=== PATIENT | female | born 1960 | race Caucasian/White ===

== ENCOUNTER 2019-03-05 09:54 | Observation (INO) | payer BC ==
[2019-03-05] MEDS: Zofran 4 MG/2 ML VIAL IV PRN (10:37)
[2019-03-05] MEDS: MORPHINE SULFATE 4 MG INJ IV PRN ×2 (10:37→15:05)
[2019-03-05 10:53] LABS: Hematocrit 40.8 % (35-47); Hemoglobin 13.6 gm/dl (12.0-16.0); Mean Cell Volume 85.2 fl (78-100); Mean Corpuscular Hemoglobin 28.4 pg (26-32); Mean Corpuscular Hgb Concent. 33.3 g/dl (32-36); Mean Platelet Volume 10.3 fl (6-9.5); Platelet Count 184 K/mm3 (150-450); Red Blood Count 4.79 M/mm3 (4.1-5.4); Red Cell Distribution Width 14.1 % (11.5-14.0); White Blood Count 7.7 K/mm3 (4.0-10.5)
[2019-03-05] MEDS ORDERED: HOLD METFORMIN PRODUCTS FOR 48 HOURS MC SCH (11:00)
[2019-03-05 11:01] LABS: ALKALINE PHOSPHATASE 136 U/L (38-126); ANION GAP 13.9 MEQ/L (5-15); BLOOD UREA NITROGEN 11 mg/dL (7-17); CHLORIDE 103 mmol/L (98-107); Calcium 9.6 mg/dL (8.4-10.2); Carbon Dioxide 31 mmol/L (22-30); Creatinine 1 0.48 mg/dL (0.52-1.04); Glucose 105 mg/dL (74-106); Potassium 4.6 mmol/L (3.5-5.1); SGOT/AST 27 U/L (14-36); SGPT/ALT 29 U/L (0-35); SODIUM 143 mmol/L (137-145); Total Protein 7.4 g/dL (6.3-8.2)
[2019-03-05] MEDS: FLAGYL IV SCH ×2 (11:01→11:55)
[2019-03-05] MEDS: Sodium Chloride 0.9% 1000 ML 1,000 ML IV SCH ×2 (11:01→22:04)
[2019-03-05] MEDS: Levofloxacin 500MG/100ML D5W 500 MG/100 ML BAG IV SCH (11:02)
[2019-03-05 11:49] LABS: Appearance CLEAR (CLEAR); Bilirubin NEGATIVE (NEGATIVE); Blood NEGATIVE Ery/ul (0-5); Glucose >=500 mg/dL (NEGATIVE); Ketones NEGATIVE (NEGATIVE); Leukocyte Esterase NEGATIVE (NEGATIVE); Mucus SLIGHT /HPF (NEGATIVE); Nitrite NEGATIVE (NEGATIVE); Protein,Urine Dip NEGATIVE (Negative); Specific Gravity 1.022 (1.005-1.025); Urobilinogen NEGATIVE mg/dL (0-1); WBC 0-2 /HPF (0-5)
--- NOTE | 2019-03-05 11:50 | XRAY ---
Indication: Left abdomen pain. Diarrhea and nausea. Increased bowel movements. 20 pound weight loss. Multiple contiguous axial images obtained through the abdomen and pelvis prior to and following 80 cc Isovue 370 contrast as ordered. Comparison: February 20, 2019. Lung bases demonstrate stable right middle lobe calcific granuloma and minimal left base fibrosis/scarring. Heart is not enlarged. Noncontrasted images again negative for pathologic visceral calcification/calculi. Noncontrasted stomach and bowel loops remain nonobstructed with stable small descending duodenum diverticulum. Stable cholecystectomy, appendectomy, and hysterectomy. No free fluid/air. Postcontrast images again demonstrates normal visceral enhancement and renal excretion. Stable 20 cm hepatomegaly and 14 cm splenomegaly. Remaining liver, pancreas, spleen, adrenal glands, kidneys, ureters, and bladder appear unremarkable. Stable minimal aortic calcifications. Again no AAA or pathologic retroperitoneal lymphadenopathy. Impression: Stable CT abdomen/pelvis with and without contrast exam again demonstrating hepatosplenomegaly and duodenal diverticulum. No new/acute findings. CT DI 23.68
[2019-03-05] MEDS ORDERED: MEDICATION INTERVENTION PO SCH (14:30)
[2019-03-05] MEDS: ENOXAPARIN SODIUM SQ SCH (16:15)
[2019-03-05] MEDS: FLAGYL 500 MG IVPB 500 MG/100 ML BAG IV SCH ×2 (17:16→23:34)
[2019-03-05] MEDS: Cymbalta 30 MG Capsule PO SCH (20:06)
[2019-03-05] MEDS: MORPHINE SULFATE 10 MG/ML IV PRN (20:07)
[2019-03-06] MEDS: Zofran 4 MG/2 ML VIAL IV PRN ×2 (02:43→08:34)
[2019-03-06] MEDS: FLAGYL 500 MG IVPB 500 MG/100 ML BAG IV SCH ×3 (05:55→18:20)
[2019-03-06] MEDS: ZOCOR 20MG PO SCH (08:44)
[2019-03-06] MEDS: ENOXAPARIN SODIUM SQ SCH (08:44)
[2019-03-06] MEDS: Levofloxacin 500MG/100ML D5W 500 MG/100 ML BAG IV SCH (08:44)
[2019-03-06] MEDS: Januvia 50 MG PO SCH (08:44)
[2019-03-06] MEDS: Cymbalta 30 MG Capsule PO SCH ×2 (08:44→21:01)
[2019-03-06] MEDS: Sodium Chloride 0.9% 1000 ML 1,000 ML IV SCH ×2 (08:45→21:02)
[2019-03-06] MEDS: MORPHINE SULFATE 10 MG/ML IV PRN (08:53)
[2019-03-06] MEDS: PATIENT OWN MEDICATION PO SCH (08:56)
[2019-03-06] MEDS ORDERED: TYLENOL EXTRA STRENGTH 500 MG PO PRN (09:10)
--- NOTE | 2019-03-06 09:10 | PCM.NOTE ---
Date and Time: 03/06/19903 Subjective Assessment: 58 yr old female seen and examined this am. Patient reports her pain is 5/9 this am. She reports that she has not had morphine today. She still has decreased appetite and no desire to eat. She has only been able to eat a cracker and drink some juice. She has not had a BM this am. The abdominal pain is mainly left quadrant all the time but then will radiate to periumbilical area. No dysuria or hematuria. Patient reports constant nausea and has had zofran twice. No other reported concerns today. - Review of Systems Constitutional: No Fever Eyes: No Symptoms Abdominal/Gastrointestinal: Abdominal Pain (LLQ and umbilical. ), Nausea, Appetite Changes, No Vomiting, No Diarrhea, No Constipation Genitourinary Symptoms: No Dysuria, No Frequency, No Hematuria, No Flank Pain Musculoskeletal: No Symptoms Skin: No Symptoms Neurological: Headache Psychological: Anxiety, Emotional Lability Objective Exam General Appearance: mild distress Neurologic Exam: oriented x 3, cooperative, normal mood/affect Skin Exam: normal color, warm, dry Eye Exam: eyes nml inspection, No scleral icterus Ears, Nose, Throat Exam: moist mucous membranes Neck Exam: normal inspection Respiratory Exam: normal breath sounds, lungs clear, No chest tenderness, No respiratory distress, No crackles/rales, No rhonchi, No wheezing Cardiovascular Exam: regular rate/rhythm, normal heart sounds, No murmur Gastrointestinal/Abdomen Exam: normal bowel sounds, tenderness (LLQ and umbilical), No distention, No mass, No guarding, No ecchymosis, No pulsatile mass, No rebound, No hernia Extremity Exam: normal inspection OBJECTIVE DATA Vital Signs: Vital Signs - 24 hr Temp Pulse Resp BP Pulse Ox 03/06/19 08:00 98.0 F 80 16 165/72 95 03/06/19 04:00 98.1 F 86 18 116/55 96 03/06/19 00:00 97.7 F 90 18 123/59 92 L 03/05/19 20:00 97.6 F 88 17 117/55 95 03/05/19 16:00 97.9 F 82 16 132/61 93 L 03/05/19 12:00 97.7 F 87 18 136/63 97 03/05/19 10:08 97.7 F 87 18 136/63 97 Pain Assessment - Last Documented Pain Intensity 5 Pain Scale Used 0-10 Pain Scale Intake and Output: Intake & Output 03/03/19 03/04/19 03/05/19 03/06/19 11:59 11:59 11:59 11:59 Intake Total 2420 Output Total 400 650 Balance -400 1770 Weight 95.5 kg Lab Results: Accuchecks Date 03/06/19 Date 03/05/19 Time 07:34 Time 16:45 Accucheck Value: 98 Accucheck Value: 103 Accucheck Value: 86 Lab Results-Last 24 Hours 03/05/19 03/05/19 03/05/19 Range/Units 10:45 10:45 Unknown WBC 7.7 (4.0-10.5) K/mm3 RBC 4.79 (4.1-5.4) M/mm3 Hgb 13.6 (12.0-16.0) gm/dl Hct 40.8 (35-47) % MCV 85.2 (78-100) fl MCH 28.4 (26-32) pg MCHC 33.3 (32-36) g/dl RDW 14.1 H (11.5-14.0) % Plt Count 184 (150-450) K/mm3 MPV 10.3 H (6-9.5) fl Sodium 143 (137-145) mmol/L Potassium 4.6 (3.5-5.1) mmol/L Chloride 103 (98-107) mmol/L Carbon Dioxide 31 H (22-30) mmol/L Anion Gap 13.9 (5-15) MEQ/L BUN 11 (7-17) mg/dL Creatinine 0.48 L (0.52-1.04) mg/dL Estimated GFR > 60.0 ML/MIN Glucose 105 (74-106) mg/dL Calcium 9.6 (8.4-10.2) mg/dL Total Bilirubin 0.30 (0.2-1.3) mg/dL AST 27 (14-36) U/L ALT 29 (0-35) U/L Alkaline Phosphatase 136 H (38-126) U/L Serum Total Protein 7.4 (6.3-8.2) g/dL Albumin 4.0 (3.5-5.0) g/dL Urine Color YELLOW (YELLOW) Urine Appearance CLEAR (CLEAR) Urine pH 7.0 (5-6) Ur Specific [place] 1.022 (1.005-1.025) Urine Protein NEGATIVE (Negative) Urine Ketones NEGATIVE (NEGATIVE) Urine Blood NEGATIVE (0-5) Umer/ul Urine Nitrite NEGATIVE (NEGATIVE) Urine Bilirubin NEGATIVE (NEGATIVE) Urine Urobilinogen NEGATIVE (0-1) mg/dL Ur Leukocyte Esterase NEGATIVE (NEGATIVE) Urine WBC (Auto) 0-2 (0-5) /HPF Urine RBC (Auto) NONE (0-2) /HPF U Epithel Cells (Auto) NONE (FEW) /HPF Urine Bacteria (Auto) NONE (NEGATIVE) /HPF Urine Mucus (Auto) SLIGHT (NEGATIVE) /HPF Urine Culture Reflexed ORDERED SEPARATELY (NO) Urine Glucose >=500 (NEGATIVE) mg/dL Radiology Exams: Radiology Procedures Category Date Time Status ABDOMEN AND PELVIS W&WO CONTRA [CT] Stat Exams 03/05/19 10:10 Completed Assessment/Plan (1) Abdominal pain Current Visit: Yes Status: Acute Assessment & Plan: Unclear etiology. Patient has had [address] scans WBC neg afebrile. Will treat for a diverticulitis with IV antibiotics and morphine for pain. Zofran for nausea. Patient will be on regular diet as tolerated. Patient is scheduled for colonoscopy on saturday. Will continue managing abdominal pain Code(s): R10.9 - UNSPECIFIED ABDOMINAL PAIN (2) Unintentional weight loss Current Visit: Yes Status: Acute Assessment & Plan: Patient is unsure if this is accurate because she believed she had gained weight. Our records indicate 22 pound weight loss. Patient has had decreased appetite. Will continue to monitor. Code(s): R63.4 - ABNORMAL WEIGHT LOSS (3) Decreased appetite Current Visit: Yes Status: Acute Assessment & Plan: Patient is on zofran for nausea and on regular diet as tolerated. Will continue to monitor. Patient may need supplemental nutrition if this continues to persist. Code(s): R63.0 - ANOREXIA (4) Headache Current Visit: Yes Status: Acute Assessment & Plan: Patient is reporting headache. Will start on tylenol Code(s): R51 - HEADACHE
[2019-03-06] MEDS: Protonix 20MG Tablet PO SCH (09:27)
[2019-03-06] MEDS ORDERED: NON-FORMULARY ITEM (Rosuvastatin Calcium [Crestor] 10 MG) PO SCH (10:00)
[2019-03-06] MEDS ORDERED: NON-FORMULARY ITEM (Empagliflozin [Jardiance] 25 MG) PO SCH (10:00)
[2019-03-06] MEDS ORDERED: NON-FORMULARY ITEM (Linagliptin [Tradjenta] 5 MG) PO SCH (10:00)
[2019-03-07] MEDS: FLAGYL 500 MG IVPB 500 MG/100 ML BAG IV SCH ×2 (00:10→06:25)
[2019-03-07] MEDS: Zofran 4 MG/2 ML VIAL IV PRN (00:40)
[2019-03-07 04:34] VITALS: PULSE 87
[2019-03-07 07:34] VITALS: BP 146/67; O2SAT 96
[2019-03-07] MEDS: Cymbalta 30 MG Capsule PO SCH (09:38)
[2019-03-07] MEDS: Januvia 50 MG PO SCH (09:38)
[2019-03-07] MEDS: PATIENT OWN MEDICATION PO SCH (09:39)
[2019-03-07] MEDS: Protonix 20MG Tablet PO SCH (09:40)
[2019-03-07] MEDS: ZOCOR 20MG PO SCH (09:43)
--- NOTE | 2019-03-07 10:08 | PCM.DS ---
Discharge Summary Date of Admission: 03/05/19 09:57 Date of Discharge: 03/07/19 Admitting Physician: CALLUM MARCUS MD Consults: Consults on Case 03/05/19 16:33 Consult Physician ROUTINE Primary Care Provider: CALLUM MARCUS MD Allergies Allergies No Known Drug Allergies Allergy (Unverified 03/05/19 10:07) Hospital Summary - Hospital Course Hospital Course: 58 yr old female with a an approximate two weeks history or left - Vitals & Intake/Output Vital Signs: Vital Signs Temperature 98 F 03/07/19 07:33 Pulse Rate 87 03/07/19 07:33 Respiratory Rate 20 03/07/19 07:33 Blood Pressure 146/67 03/07/19 07:33 O2 Sat by Pulse Oximetry 96 03/07/19 07:33 Intake & Output: Intake & Output 03/04/19 03/05/19 03/06/19 03/07/19 11:59 11:59 11:59 11:59 Intake Total 2540 3661 Output Total 922 370 5393 Balance -400 1890 1361 Weight 95.5 kg - Lab Result Diagrams: 03/05/19 10:45 03/05/19 10:45 Lab Results-Last 24 Hrs: Accuchecks Date 03/06/19 Date 03/06/19 Date 03/06/19 Time 21:30 Time 17:30 Time 12:36 Accucheck Value: 115 Accucheck Value: 92 Accucheck Value: 105 Micro Results-Entire Visit: Microbiology 03/05/19 Unknown Urine Culture - Preliminary Urine, Void No growth. Accuchecks Date 03/06/19 Date 03/06/19 Date 03/06/19 Time 21:30 Time 17:30 Time 12:36 Accucheck Value: 115 Accucheck Value: 92 Accucheck Value: 105 - Radiology Exams Ordered Rad Exams-Entire Visit: Radiology Procedures Category Date Time Status ABDOMEN AND PELVIS W&WO CONTRA [CT] Stat Exams 03/05/19 10:10 Completed Final Diagnosis/Problem List - Final Discharge Diagnosis/Problem (1) Abdominal pain Current Visit: Yes Status: Acute Code(s): R10.9 - UNSPECIFIED ABDOMINAL PAIN (2) Unintentional weight loss Current Visit: Yes Status: Acute Code(s): R63.4 - ABNORMAL WEIGHT LOSS (3) Decreased appetite Current Visit: Yes Status: Acute Code(s): R63.0 - ANOREXIA (4) Headache Current Visit: Yes Status: Acute Code(s): R51 - HEADACHE - Discharge Disposition: Home, Self-Care Condition: Stable Prescriptions: No Action Duloxetine HCl [Cymbalta] 60 mg PO DAILY Duloxetine HCl 30 mg [Cymbalta 30 MG Capsule] 30 mg PO HS Rosuvastatin Calcium [Crestor] 10 mg PO DAILY Linagliptin [Tradjenta] 5 mg PO DAILY Empagliflozin [Jardiance] 25 mg PO DAILY Ondansetron ODT 4 MG [Zofran Odt 4 mg] 8 mg PO BID PRN PRN Reason: Nausea Metformin HCl 500 mg [Glucophage 500 MG] 1,000 mg PO BIDWM Esomeprazole Magnesium [Nexium] 20 mg PO DAILY Instructions: Colonoscopy (DC), Acute Abdomen (Belly Pain), Adult (DC), Diverticulosis (DC) Additional Instructions: KEEP APPOINTMENT ON TUESDAY 03/[address] ALVAREZ AT [facility] FOR ENDOSCOPY/ COLONOSCOPY. BEGIN COLON PREP ON SATURDAY PER PREVIOUS INSTRUCTIONS ALONG WITH 2 DULCOLAX TABLETS ON SATURDAY NIGHT. Follow up with: CALLUM MARCUS MD [Primary Care Provider] - 03/16/19 10:00 am
== END 2019-03-07 11:00 | disposition home or self-care (01) ==
LOC: MED SURG 09:57
PROVIDERS: ADMIT Family Medicine; ATTEND Family Medicine
DX: R10.9 Unspecified abdominal pain (principal); R63.4 Abnormal weight loss; R63.0 Anorexia; R51 Headache; Z79.899 Other long term (current) drug therapy; E11.9 Type 2 diabetes mellitus without complications; E05.90 Thyrotoxicosis, unspecified without thyrotoxic crisis or storm
CPT/HCPCS: 36415; 74178; 80053; 81001; 82962; 85027; 87086; G0378; J1650; J1956; J2270; J2405; A9270-GY

== ENCOUNTER 2019-03-13 05:48 | Day surgery (SDC) | payer BC ==
[2019-03-13] MEDS ORDERED: Lactated Ringers 1,000 ML IV SCH (06:30)
[2019-03-13] MEDS ORDERED: Ketamine HCl 50 MG/ML ONE (07:46)
[2019-03-13] MEDS ORDERED: DIPRIVAN 200 MG/20 ML IV ONE ×2 (07:46→08:03)
[2019-03-13 09:03] VITALS: O2SAT 97
[2019-03-13 09:12] VITALS: BP 118/78; PULSE 85
--- NOTE | 2019-03-13 09:58 | OP ---
SURGERY DATE/TIME: 03/13/2019 0746 PREOPERATIVE DIAGNOSIS: Left lower quadrant abdominal pain. POSTOPERATIVE DIAGNOSIS: Normal colon. PROCEDURE: Colonoscopy. SURGEON: Dr. Broderick. ANESTHESIA: MAC. Medications given by anesthesia department. HISTORY: The patient is a 58 year-old white female who had been hospitalized for what was felt to be diverticulitis with left lower quadrant abdominal pain. CT scan findings were not consistent with this. However, the patient was treated and seemed to improve with IV antibiotics. The patient however reports that since she was discharged from the hospital she has continued to have intermittent abdominal pain on the left side. She does however report that she felt better after getting cleansed out for the colonoscopy. The patient was felt the need to have colonoscopic evaluation. She was appraised of the risks of the procedure including the risk of perforation, phlebitis, untoward reaction to medication, bleeding and missed lesions. The patient verbalized her understanding and desired to have the procedure performed. DESCRIPTION OF PROCEDURE: The patient was given the medications by the anesthesia department. She had continuous pulse oximetry, ECG monitoring, intermittent blood pressure monitoring and tidal CO2 monitoring during the examination. She was placed in the left lateral decubitus position. A digital rectal examination was performed and revealed normal anal sphincter tone and no masses. The flexible Olympus pediatric colonoscope was used to intubate the rectum. A view of the colon was developed sequentially to the cecum including a short distance into the terminal ileum. Upon insertion and withdrawal, including a retroflex view in the rectum, no mucosal lesions were encountered. The scope was removed from the patient who tolerated the procedure well and was sent back to OP recovery in good condition. The prep was noted to be fair to good.
== END 2019-03-13 09:20 | disposition home or self-care (01) ==
LOC: SDC 05:48
PROVIDERS: ATTEND Family Medicine
DX: R10.32 Left lower quadrant pain (principal); E11.9 Type 2 diabetes mellitus without complications; E78.5 Hyperlipidemia, unspecified; Z79.899 Other long term (current) drug therapy
CPT/HCPCS: 82962; J2704

== ENCOUNTER 2019-09-05 04:45 | Emergency (ER) | payer BC, SELFPAY ==
[2019-09-05] MEDS ORDERED: BABY ASPIRIN 81 MG CHEW PO ONE (05:11)
--- NOTE | 2019-09-05 05:11 | ERPHSYRPT ---
- History of Present Illness Time Seen by Provider: 09/05/19 05:00 Patient Subjective Stated Complaint: pt c/o chest pain since 0330 Triage Nursing Assessment: pt c/o chest pain at 0330 this morning. Chest pain occured when pt was in the shower this am. Pt became nauseous once here, no vomiting. Pt denies any radiation of pain anywhere. Pt appears very anxious. Physician History: This is a 58-year-old white female who has a history of diabetes, gastroesophageal reflux disease, hypercholesterolemia, anxiety, depression and Graves' disease. Patient is not on any medications for Graves' disease. She presents with 1 week history of not feeling well. She describes it as feeling anxious and stressed. She states there is no 1 specific traumatic issue or event that she is stressed about. This morning she is experiencing more anxiety and stress and also left upper anterior chest pain described as heaviness without radiation. Patient arrives to the emergency department very tearful. Patient states yesterday she was coughing quite a bit but no coughing today. She has felt hot and sweaty the last 2 days. Patient denies shortness of breath she denies abdominal pain she denies myalgias or arthralgias and she denies nausea vomiting or diarrhea at this time. Timing/Duration: week(s) Activities at Onset: none Quality: other (Venous) Location: other (Left anterior chest wall) Chest Pain Radiation: no radiation Severity of Pain-Max: moderate Severity of Pain-Current: mild Modifying Factors: Improves With: nothing Associated Symptoms: cough (Has resolved but did have coughing yesterday prior to arrival), diaphoresis Prior Chest Pain/Cardiac Workup: no prior chest pain Nitro Today/Relief: no nitro taken today Aspirin Treatment Today: no aspirin today Allergies/Adverse Reactions: No Known Drug Allergies Allergy (Verified 09/05/19 05:04) Home Medications: Duloxetine HCl 30 mg [Cymbalta 30 MG Capsule] 30 mg PO HS 03/05/19 [ History] Duloxetine HCl [Cymbalta] 60 mg PO DAILY 03/05/19 [History] Empagliflozin [Jardiance] 25 mg PO DAILY 03/05/19 [History] Linagliptin [Tradjenta] 5 mg PO DAILY 03/05/19 [History] Metformin HCl 500 mg [Glucophage 500 MG] 1,000 mg PO BIDWM 03/05/19 [ History] Esomeprazole Magnesium [Nexium] 20 mg PO DAILY 03/06/19 [History] Rosuvastatin Calcium [Crestor] 10 mg PO DAILY 09/05/19 [History] Hx Tetanus, Diphtheria Vaccination/Date Given: Yes Hx Influenza Vaccination/Date Given: Yes Hx Pneumococcal Vaccination/Date Given: No Immunizations Up to Date: Yes Travel Risk - International Travel Have you traveled outside of the country in past 3 weeks: No Have you or anyone close to you been diagnosed with or: No Do your reside in a community with a known COVID-19 case?: Yes If Yes where:: [place] - Coronavirus Screening Has patient experienced Coronavirus symptoms: No - Review of Systems Constitutional: No Symptoms Eyes: No Symptoms Ears, Nose, & Throat: No Symptoms Respiratory: No Symptoms Cardiac: Chest Pain Abdominal/Gastrointestinal: No Symptoms Genitourinary Symptoms: No Symptoms Musculoskeletal: No Symptoms Skin: No Symptoms Neurological: No Symptoms Psychological: No Symptoms Endocrine: No Symptoms Hematologic/Lymphatic: No Symptoms Immunological/Allergic: No Symptoms All Other Systems: Reviewed and Negative - Past Medical History Pertinent Past Medical History: Yes Neurological History: No Pertinent History ENT History: No Pertinent History Cardiac History: No Pertinent History Respiratory History: Bronchitis Endocrine Medical History: Diabetes Type II, Hyperthyroidism Musculoskeletal History: No Pertinent History GI Medical History: Gallbladder Disease History: No Pertinent History Psycho-Social History: Depression Female Reproductive Disorders: No Pertinent History - Past Surgical History Past Surgical History: Yes Neuro Surgical History: No Pertinent History Cardiac: No Pertinent History Respiratory: No Pertinent History Gastrointestinal: Appendectomy, Cholecystectomy Genitourinary: No Pertinent History Musculoskeletal: No Pertinent History Female Surgical History: Hysterectomy - Social History Smoking Status: Never smoker Exposure to second hand smoke: Yes Drug Use: none Patient Lives Alone: Yes - Female History Hx Now: No - Nursing Vital Signs Nursing Vital Signs: Initial Vital Signs Temperature 99.0 F 09/05/19 04:52 Pulse Rate 82 09/05/19 04:52 Respiratory Rate 21 09/05/19 04:52 Blood Pressure 159/104 09/05/19 04:52 O2 Sat by Pulse Oximetry 98 09/05/19 04:52 Pain Scale Pain Intensity 5 - Physical Exam General Appearance: no apparent distress, alert, anxiety, other (Tearful) Eye Exam: PERRL/EOMI, eyes nml inspection Ears, Nose, Throat Exam: normal ENT inspection, moist mucous membranes Neck Exam: normal inspection, non-tender, supple, full range of motion Respiratory Exam: normal breath sounds, chest tenderness, lungs clear, airway intact, No respiratory distress Cardiovascular Exam: regular rate/rhythm, normal heart sounds, normal peripheral pulses Gastrointestinal/Abdomen Exam: soft, normal bowel sounds, No tenderness, No guarding, No rebound Pelvic Exam: not done Rectal Exam: not done Back Exam: normal inspection, normal range of motion, No CVA tenderness Extremity Exam: normal inspection, normal range of motion, pelvis stable Neurologic Exam: alert, oriented x 3, cooperative, sewing machine operator semiautomatic II-XII nml as tested, nml cerebellar function, nml station & gait Skin Exam: normal color, warm, dry Lymphatic Exam: No adenopathy SpO2 Interpretation: normal SpO2: 98 O2 Delivery: Room Air - Course Nursing assessment & vital signs reviewed: Yes EKG Interpreted by Me: RATE (81), Sinus Rhythm, NORMAL AXIS, NORMAL INTERVALS, Other (No comparison EKG) Ordered Tests: Active Orders 24 hr Category Date Time Status Daytime Caregiver STAT Care 09/05/19 05:11 Active EKG-ER Only STAT Care 09/05/19 05:11 Active IV Insertion STAT Care 09/05/19 05:11 Active Isolation, Initiate & Maintain Q4H Care 09/05/19 05:03 Active Pulse Oximetry (ED) STAT Care 09/05/19 05:11 Active CHEST 1 VIEW (PORTABLE) Stat Exams 09/05/19 05:11 Taken CBC W DIFF Stat Lab 09/05/19 05:26 Completed CMP Stat Lab 09/05/19 05:26 Completed NT PRO BNP Stat Lab 09/05/19 05:26 Completed T4 (Thyroxine) Routine Lab 09/05/19 05:26 Results TROPONIN Q3H Lab 09/05/19 05:26 Results TROPONIN Q3H Lab 09/05/19 08:15 Ordered TROPONIN Q3H Lab 09/05/19 11:15 Ordered TROPONIN Q3H Lab 09/05/19 14:15 Ordered TROPONIN Q3H Lab 09/05/19 17:15 Ordered TSH, 3RD Generation Routine Lab 09/05/19 05:26 Results UA W/RFX UR CULTURE Stat Lab 09/05/19 05:20 Completed Medication Summary Discontinued Medications Generic Name Dose Route Start Last Admin Trade Name Freq PRN Reason Stop Dose Admin Aspirin 324 mg 09/05/19 05:11 09/05/19 05:17 Baby Aspirin 81 Mg Chew PO 09/05/19 05:12 324 mg STAT ONE Administration Lab/Rad Data: Laboratory Result Diagrams 09/05/19 05:26 09/05/19 05:26 Laboratory Results 09/05/19 09/05/19 09/05/19 Range/Units 05:50 05:26 05:26 WBC (4.0-10.5) K/mm3 RBC (4.1-5.4) M/mm3 Hgb (12.0-16.0) gm/dl Hct (35-47) % MCV (78-100) fl MCH (26-32) pg MCHC (32-36) g/dl RDW (11.5-14.0) % Plt Count (150-450) K/mm3 MPV (7.5-11.0) fl Gran % (36.0-66.0) % Eos # (Auto) (0-0.5) Absolute Lymphs (auto) (1.0-4.6) Absolute Monos (auto) (0.0-1.3) Lymphocytes % (24.0-44.0) % Monocytes % (0.0-12.0) % Eosinophils % (0.00-5.0) % Basophils % (0.0-0.4) % Absolute Granulocytes (1.4-6.9) Basophils # (0-0.4) Sodium 140 (137-145) mmol/L Potassium 4.1 (3.5-5.1) mmol/L Chloride 103 (98-107) mmol/L Carbon Dioxide 26 (22-30) mmol/L Anion Gap 15.5 H (5-15) MEQ/L BUN 12 (7-17) mg/dL Creatinine 0.63 (0.52-1.04) mg/dL Estimated GFR > 60.0 ML/MIN Glucose 133 H (74-106) mg/dL Calcium 9.3 (8.4-10.2) mg/dL Total Bilirubin 0.50 (0.2-1.3) mg/dL AST 24 (14-36) U/L ALT 20 (0-35) U/L Alkaline Phosphatase 171 H (38-126) U/L Troponin I < 0.012 (0.000-0.034) ng/mL NT-Pro-B Natriuret Pep 77.6 (0-900) pg/mL Serum Total Protein 7.8 (6.3-8.2) g/dL Albumin 4.2 (3.5-5.0) g/dL Thyroxine (T4) Pending TSH 3rd Generation Pending Urine Color (YELLOW) Urine Appearance (CLEAR) Urine pH (5-6) Ur Specific [place] (1.005-1.025) Urine Protein (Negative) Urine Ketones (NEGATIVE) Urine Blood (0-5) Umer/ul Urine Nitrite (NEGATIVE) Urine Bilirubin (NEGATIVE) Urine Urobilinogen (0-1) mg/dL Ur Leukocyte Esterase (NEGATIVE) Urine WBC (Auto) (0-5) /HPF Urine RBC (Auto) (0-2) /HPF U Epithel Cells (Auto) (FEW) /HPF Urine Bacteria (Auto) (NEGATIVE) /HPF Urine Culture Reflexed (NO) Urine Glucose (NEGATIVE) mg/dL Influenza Type A Ag NEGATIVE (NEGATIVE) Influenza Type B Ag NEGATIVE (NEGATIVE) RSV (PCR) NEGATIVE (Negative) 09/05/19 09/05/19 Range/Units 05:26 05:20 WBC 8.3 (4.0-10.5) K/mm3 RBC 5.14 (4.1-5.4) M/mm3 Hgb 14.1 (12.0-16.0) gm/dl Hct 43.8 (35-47) % MCV 85.2 (78-100) fl MCH 27.4 (26-32) pg MCHC 32.2 (32-36) g/dl RDW 14.0 (11.5-14.0) % Plt Count 219 (150-450) K/mm3 MPV 10.9 (7.5-11.0) fl Gran % 63.1 (36.0-66.0) % Eos # (Auto) 0.23 (0-0.5) Absolute Lymphs (auto) 2.12 (1.0-4.6) Absolute Monos (auto) 0.70 (0.0-1.3) Lymphocytes % 25.5 (24.0-44.0) % Monocytes % 8.4 (0.0-12.0) % Eosinophils % 2.8 (0.00-5.0) % Basophils % 0.2 (0.0-0.4) % Absolute Granulocytes 5.24 (1.4-6.9) Basophils # 0.02 (0-0.4) Sodium (137-145) mmol/L Potassium (3.5-5.1) mmol/L Chloride (98-107) mmol/L Carbon Dioxide (22-30) mmol/L Anion Gap (5-15) MEQ/L BUN (7-17) mg/dL Creatinine (0.52-1.04) mg/dL Estimated GFR ML/MIN Glucose (74-106) mg/dL Calcium (8.4-10.2) mg/dL Total Bilirubin (0.2-1.3) mg/dL AST (14-36) U/L ALT (0-35) U/L Alkaline Phosphatase (38-126) U/L Troponin I (0.000-0.034) ng/mL NT-Pro-B Natriuret Pep (0-900) pg/mL Serum Total Protein (6.3-8.2) g/dL Albumin (3.5-5.0) g/dL Thyroxine (T4) TSH 3rd Generation Urine Color STRAW (YELLOW) Urine Appearance CLEAR (CLEAR) Urine pH 6.0 (5-6) Ur Specific [place] 1.009 (1.005-1.025) Urine Protein NEGATIVE (Negative) Urine Ketones NEGATIVE (NEGATIVE) Urine Blood SMALL (0-5) Umer/ul Urine Nitrite NEGATIVE (NEGATIVE) Urine Bilirubin NEGATIVE (NEGATIVE) Urine Urobilinogen NEGATIVE (0-1) mg/dL Ur Leukocyte Esterase NEGATIVE (NEGATIVE) Urine WBC (Auto) NONE (0-5) /HPF Urine RBC (Auto) NONE (0-2) /HPF U Epithel Cells (Auto) NONE (FEW) /HPF Urine Bacteria (Auto) NONE (NEGATIVE) /HPF Urine Culture Reflexed NO (NO) Urine Glucose >=500 (NEGATIVE) mg/dL Influenza Type A Ag (NEGATIVE) Influenza Type B Ag (NEGATIVE) RSV (PCR) (Negative) - Progress Progress: improved Air Movement: good Progress Note: 09/05/19 06:36 Chest x-ray reveals no acute process present. This was compared to chest x-ray dated June 03, 2018. Medical decision making: Further questioning of this patient, patient does have a history of Graves' disease/hyperthyroidism. She has been on methimazole in the past. She states that she only took 1 pill daily. Patient states that her physician took her off that medicine and she has been stable until recently. We will place her on a beta-jenifer over the weekend as well as daily methimazole. Patient has an appointment to see her bus transportation manager on Saturday, September 07, 2019. Blood Culture(s) Obtained: No Antibiotics given: No Counseled pt/family regarding: lab results, diagnosis, need for follow-up, rad results - Departure Departure Disposition: Home Clinical Impression: Chest pain, non-cardiac, Hyperthyroidism Condition: Stable Critical Care Time: No Referrals: CALLUM MARCUS MD [Primary Care Provider] - Additional Instructions: Take your medication as prescribed. Keep your appointment with your bus transportation manager on Saturday, September 07, 2019. Return to the emergency room if your symptoms are worsening. Prescriptions: Methimazole [Tapazole] 5 mg PO DAILY #7 tablet Propranolol HCl 10 mg PO Q6H #12 tablet
[2019-09-05 05:24] LABS: Absolute Neutrophil Ct (ANC) 5.24 (1.4-6.9); BASOPHIL % 0.2 % (0.0-0.4); Basophil (Absolute #) 0.02 (0-0.4); Eosinophil % 2.8 % (0.00-5.0); Eosinophil (Absolute #) 0.23 (0-0.5); Hematocrit 43.8 % (35-47); Hemoglobin 14.1 gm/dl (12.0-16.0); Lymphocyte (Absolute #) 2.12 (1.0-4.6); Lymphocytes % 25.5 % (24.0-44.0); Mean Cell Volume 85.2 fl (78-100); Mean Corpuscular Hemoglobin 27.4 pg (26-32); Mean Corpuscular Hgb Concent. 32.2 g/dl (32-36); Mean Platelet Volume 10.9 fl (7.5-11.0); Monocytes % 8.4 % (0.0-12.0); Neutrophil % 63.1 % (36.0-66.0); Platelet Count 219 K/mm3 (150-450); Red Blood Count 5.14 M/mm3 (4.1-5.4); White Blood Count 8.3 K/mm3 (4.0-10.5)
[2019-09-05 05:37] LABS: Appearance CLEAR (CLEAR); Bilirubin NEGATIVE (NEGATIVE); Blood SMALL Ery/ul (0-5); Glucose >=500 mg/dL (NEGATIVE); Ketones NEGATIVE (NEGATIVE); Leukocyte Esterase NEGATIVE (NEGATIVE); Nitrite NEGATIVE (NEGATIVE); Protein,Urine Dip NEGATIVE (Negative); Specific Gravity 1.009 (1.005-1.025); Urobilinogen NEGATIVE mg/dL (0-1)
[2019-09-05 05:49] LABS: ALBUMIN 4.2 g/dL (3.5-5.0); ALKALINE PHOSPHATASE 171 U/L (38-126); ANION GAP 15.5 MEQ/L (5-15); BLOOD UREA NITROGEN 12 mg/dL (7-17); CHLORIDE 103 mmol/L (98-107); Calcium 9.3 mg/dL (8.4-10.2); Carbon Dioxide 26 mmol/L (22-30); Creatinine 1 0.63 mg/dL (0.52-1.04); Glucose 133 mg/dL (74-106); NT PRO BNP 77.6 pg/mL (0-900); Potassium 4.1 mmol/L (3.5-5.1); SGOT/AST 24 U/L (14-36); SGPT/ALT 20 U/L (0-35); SODIUM 140 mmol/L (137-145); Total Protein 7.8 g/dL (6.3-8.2)
[2019-09-05 05:54] LABS: TROPONIN < 0.012 ng/mL (0.000-0.034)
[2019-09-05 06:20] LABS: T4 (Thyroxine) 17.1 ug/dL (5.53-10.96); TSH, 3RD Generation < 0.015 mIU/L (0.47-4.68)
[2019-09-05 06:20] LABS: INFLUENZA A NEGATIVE (NEGATIVE); INFLUENZA B NEGATIVE (NEGATIVE); RESPIRATORY SYNCTIAL VIRUS NEGATIVE (Negative)
[2019-09-05] MEDS ORDERED: LOPRESSOR 5 MG/5 ML INJECTION IV ONE ×2 (06:34→06:37)
[2019-09-05 06:45] VITALS: O2SAT 98
[2019-09-05 06:59] VITALS: BP 163/62; PULSE 74
--- NOTE | 2019-09-05 08:34 | XRAY ---
Indication: Chest pain. Comparison: June 03, 2018. Portable chest less inflated again with a few incidental right lung calcified granulomas. No focal infiltrate, consolidation, or large effusion. Heart and mediastinal structures within normal limits. Bony thorax intact. Impression: Nonacute chest with chronic features.
== END 2019-09-05 06:58 | disposition home or self-care (01) ==
LOC: ED 04:45
DX: N39.0 Urinary tract infection, site not specified (principal); B95.2 Enterococcus as the cause of diseases classified elsewhere
CPT/HCPCS: 36000; 36415; 71045; 80053; 81001; 83880; 84436; 84443; 84484; 85025; 87631; 93005; 93041; 94760; 96374; 99284; A9270-GY

== ENCOUNTER 2020-06-09 08:29 | Emergency (ER) | payer BC, SELFPAY ==
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
[2020-06-09 10:15] VITALS: BP 138/82; PULSE 78; O2SAT 97
== END 2020-06-09 10:16 | disposition home or self-care (01) ==
LOC: ED 08:29
DX: R51.9 Headache, unspecified (principal); M25.512 Pain in left shoulder; E11.9 Type 2 diabetes mellitus without complications; V43.52XA Car driver injured in collision with other type car in traffic accident, initial encounter; Z79.899 Other long term (current) drug therapy
CPT/HCPCS: 70450; 73030; 99284

== ENCOUNTER 2022-02-27 05:47 | Day surgery (SDC) | payer BC ==
[2022-02-27] MEDS ORDERED: Lactated Ringers 1,000 ML IV SCH (06:30)
[2022-02-27] MEDS ORDERED: Xylocaine-Mpf 2% 5 Ml Vial ONE (07:34)
[2022-02-27] MEDS ORDERED: DIPRIVAN 200 MG/20 ML IV ONE ×2 (07:34→08:00)
[2022-02-27] MEDS ORDERED: Versed 2 MG/2 ML Injection ONE (07:34)
[2022-02-27 08:27] VITALS: O2SAT 97
[2022-02-27 08:42] VITALS: BP 119/70; PULSE 79
--- NOTE | 2022-02-27 11:25 | OP ---
SURGERY DATE/TIME: 02/27/2022 0740 PREOPERATIVE DIAGNOSES: 1) Nausea. 2) Change in bowels with left lower quadrant abdominal pain. POSTOPERATIVE DIAGNOSES: 1) NSAID-type gastritis. 2) Normal colon. PROCEDURES: 1) Esophagogastroduodenoscopy with cold forceps biopsy epigastric antrum. 2) Colonoscopy. SURGEON: Dr. Andrew Broderick. ANESTHESIA: Medications were given by the anesthesia department. HISTORY: The patient is a 61-year-old white female presents now with complaints of nausea and left lower quadrant abdominal pain. The patient reports she had colonoscopy previously with the last time approximately three to four years ago which were normal. The patient now reports epigastric discomfort. She is currently taking magnesium and meloxicam. She is also on Metformin. The patient was felt the need to have endoscopic evaluation. She was appraised of the risks of the procedure including the risk of perforation, phlebitis, untoward reaction to medication, bleeding and missed lesions. The patient verbalized her understanding and desired to have the procedure performed. DESCRIPTION OF PROCEDURE: The patient was given the medications by the anesthesia department. She had continuous pulse oximetry, ECG monitoring and intermittent blood pressure monitoring during the examination. She was placed in the left lateral decubitus position. A bite block was placed and the flexible Olympus gastroscope was used to intubate the oropharynx. A view of the larynx was obtained and was normal. The scope was easily introduced in the esophagus which appeared to be normal throughout its length. The stomach was entered where normal gastric rugal folds were seen. There was noted to be the presence of what appeared to be an NSAID-type gastropathy which was mild in nature. There was also noted to be some benign gastric polyps secondary to the use of proton pump inhibitor medications. The scope was passed along the greater curvature of the stomach to the antrum. The pylorus encountered and intubated and found to be normal. The scope is withdrawn towards the stomach. Again, retroflex view was obtained of the lesser curvature, fundus and cardia regions of the stomach which appeared to be normal as well. The scope was then redirected towards the gastric antrum and biopsies were obtained to rule out the presence of Helicobacter pylori-type organisms and confirm the presence of chemical gastropathy likely due to meloxicam. The scope is withdrawn from the patient. Next, a digital rectal examination was performed and revealed normal anal sphincter tone and no masses. The flexible Olympus pediatric colonoscope was used to intubate the rectum. A view of the colon was developed sequentially to the cecum including into the terminal ileum. Upon insertion and withdrawal, including a retroflex view in the rectum, no mucosal lesions were encountered. The scope was removed from the patient who tolerated the procedure well and sent back to OP recovery in good condition. The prep was noted to be fair with fairly moderate amounts of liquid stool in the colon was suctioned during the procedure to improve the visualization.
== END 2022-02-27 08:50 | disposition home or self-care (01) ==
LOC: SDC 05:47
PROVIDERS: ATTEND Family Medicine
DX: K29.70 Gastritis, unspecified, without bleeding (principal); R11.0 Nausea; R19.4 Change in bowel habit; R10.32 Left lower quadrant pain; E11.9 Type 2 diabetes mellitus without complications
CPT/HCPCS: 82947; 88305; J2250; J2704

== ENCOUNTER 2022-12-30 06:20 | Emergency (ER) | payer BC ==
[2022-12-30 06:55] VITALS: TEMP 98.7
[2022-12-30] MEDS ORDERED: Sodium Chloride 0.9% 1000 ML 1,000 ML IV STA (07:22)
[2022-12-30] MEDS ORDERED: Sodium Chloride 0.9% 1000 ML 1,000 ML ONE (07:24)
[2022-12-30 07:35] LABS: Absolute Neutrophil Ct (ANC) 4.92 x10^3/uL (1.4-6.9); BASOPHIL % 0.5 % (0.0-0.4); Basophil (Absolute #) 0.04 x10^3/uL (0-0.4); Eosinophil % 1.8 % (0.00-5.0); Eosinophil (Absolute #) 0.14 x10^3/uL (0-0.5); Hemoglobin 11.6 g/dL (12.0-16.0); IMMATURE GRAN # 0.02 x10^3u/L (0.00-0.03); IMMATURE GRAN % 0.3 % (0.00-0.4); Lymphocyte (Absolute #) 2.09 x10^3/uL (1.0-4.6); Lymphocytes % 27.2 % (24.0-44.0); Mean Cell Volume 83.1 fL (78-100); Mean Corpuscular Hemoglobin 26.8 pg (26-32); Mean Corpuscular Hgb Concent. 32.2 g/dL (32-36); Mean Platelet Volume 11.3 fL (7.5-11.0); Monocyte (Absolute #) 0.46 x10^3/uL (0.0-1.3); Neutrophil % 64.2 % (36.0-66.0); Platelet Count 216 x10^3/uL (150-450); Red Blood Count 4.33 x10^6/uL (4.1-5.4); Red Cell Distribution Width 14.9 % (11.5-14.0); White Blood Count 7.7 x10^3/uL (4.0-10.5)
--- NOTE | 2022-12-30 07:45 | ERPHSYRPT ---
- History of Present Illness Time Seen by Provider: 12/30/22 07:41 Source: patient Exam Limitations: no limitations Patient Subjective Stated Complaint: pt states her blood sugar has been running high since yesterday. was over 500 yesterday and this morning was 402. pt c/o frontal headache and not feeling well Triage Nursing Assessment: pt alert and oriented, answers questions approp. pt ambulates into room with steady gait noted. respirations nonlabored. skin warm and dry. abd soft and nontender, bowel sounds present x4 quads. pupils equal and reactive. bilat upper and lower ext strength equal and wnl Physician History: Patient is 62-year-old female with significant past medical history of diabetes type 2 has been on multiple different medications recently but now she is only on metformin. She states that her nurse school moved little bit further so that she cannot go and see him. She has been seeing nurse practitioner who is managing her diabetes has changed so many different medication. But her in surance required prior authorization and some of her other medications she cannot afford due to high co-pay she is just only on metformin now. Since last few weeks her blood sugar has been running in 300`s and she does not feel good. She is complaining of headache generalized weakness abdominal pain yeast infection in her genital area. Timing/Duration: week(s) Associated Symptoms: abdominal pain, headaches, weakness Allergies/Adverse Reactions: cephalexin [From Keflex] Allergy (Verified 12/30/22 06:46) states "i don't remember" Home Medications: Esomeprazole Magnesium [Nexium] 40 mg PO DAILY 03/06/19 [History] Rosuvastatin Calcium [Crestor] 10 mg PO DAILY 09/05/19 [History] Venlafaxine HCl ER 75 mg [Effexor XR 75 MG] 150 mg PO DAILY 06/09/20 [History] Albuterol Sulfate [Proair Respiclick] 90 mcg IH Q4H 02/13/22 [History] Lisinopril 10 mg [Zestril 10 MG] 10 mg PO DAILY 02/13/22 [History] Loratadine 10 mg [Claritin 10 mg] 10 mg PO DAILY 02/13/22 [History] Metformin HCl [Metformin HCl ER] 1,000 mg PO BID 02/13/22 [History] Hx Tetanus, Diphtheria Vaccination/Date Given: Yes Hx Influenza Vaccination/Date Given: Yes Hx Pneumococcal Vaccination/Date Given: No Immunizations Up to Date: No Travel Risk - International Travel Have you traveled outside of the country in past 3 weeks: No - Coronavirus Screening Are you exhibiting any of the following symptoms?: No Close contact with a COVID-19 positive Pt in past 14-21 Days: No - Vaccine Status Have you recieved a Covid-19 vaccination: Yes Post Graduate Intern: Unknown - Vaccination Dates Dates if Unknown: 2020 - Review of Systems Constitutional: Weakness, No Fever, No Chills Eyes: No Symptoms Ears, Nose, & Throat: No Symptoms Respiratory: No Cough, No Dyspnea Cardiac: No Chest Pain, No Edema, No Syncope Abdominal/Gastrointestinal: Abdominal Pain, No Nausea, No Vomiting, No Diarrhea Genitourinary Symptoms: No Dysuria Musculoskeletal: No Back Pain, No Neck Pain Skin: No Rash Neurological: Headache, No Dizziness, No Focal Weakness, No Sensory Changes Psychological: No Symptoms Endocrine: No Symptoms All Other Systems: Reviewed and Negative - Past Medical History Pertinent Past Medical History: Yes Neurological History: No Pertinent History ENT History: No Pertinent History Cardiac History: High Cholesterol, Hypertension Respiratory History: Asthma, Sleep Apnea Endocrine Medical History: Diabetes Type II, Hypothyroidism Musculoskeletal History: Fractures, Other GI Medical History: Gallbladder Disease History: No Pertinent History Psycho-Social History: Depression Female Reproductive Disorders: No Pertinent History Other Medical History: SOB AT TIMES. PT HAS BEEN CLEARED WITH HER HEART. PT NOTES SHE MAY HAVE SLEEP APNEA - Past Surgical History Past Surgical History: Yes Neuro Surgical History: No Pertinent History Cardiac: Cardiac Catheterization Respiratory: No Pertinent History Gastrointestinal: Appendectomy, Cholecystectomy Genitourinary: No Pertinent History Musculoskeletal: No Pertinent History Female Surgical History: Hysterectomy, Tubal Ligation - Social History Smoking Status: Never smoker Exposure to second hand smoke: No Drug Use: none Patient Lives Alone: No - Nursing Vital Signs Nursing Vital Signs: Initial Vital Signs Temperature 98.7 F 12/30/22 06:30 Pulse Rate 87 12/30/22 06:30 Respiratory Rate 16 12/30/22 06:30 Blood Pressure 157/75 12/30/22 06:30 O2 Sat by Pulse Oximetry 97 12/30/22 06:30 Pain Scale Pain Intensity 0 - Physical Exam General Appearance: no apparent distress, alert Eye Exam: PERRL/EOMI, eyes nml inspection Ears, Nose, Throat Exam: normal ENT inspection, TMs normal, pharynx normal, moist mucous membranes Neck Exam: normal inspection, non-tender, supple, full range of motion Respiratory Exam: normal breath sounds, lungs clear, No respiratory distress Cardiovascular Exam: regular rate/rhythm, normal heart sounds, normal peripheral pulses Gastrointestinal/Abdomen Exam: soft, normal bowel sounds, No tenderness, No mass Back Exam: normal inspection, normal range of motion, No CVA tenderness, No vertebral tenderness Extremity Exam: normal inspection, normal range of motion, pelvis stable Neurologic Exam: alert, oriented x 3, cooperative, normal mood/affect, nml cerebellar function, nml station & gait, sensation nml, No motor deficits Skin Exam: normal color, warm, dry, No rash Lymphatic Exam: No adenopathy SpO2: 97 - Course Nursing assessment & vital signs reviewed: Yes Ordered Tests: Active Orders 24 hr Category Date Time Status IV Insertion STAT Care 12/30/22 07:36 Active CBC W DIFF Stat Lab 12/30/22 07:33 Completed CMP Stat Lab 12/30/22 07:33 Received POCT GLUCOSE Stat Lab 12/30/22 06:37 Completed TSH, 3RD Generation Stat Lab 12/30/22 07:33 Received UA W/RFX UR CULTURE Stat Lab 12/30/22 07:33 Completed Medication Summary Generic Name Dose Route Start Last Admin Trade Name Freq PRN Reason Stop Dose Admin Sodium Chloride 1,000 mls @ 999 mls/hr 12/30/22 07:22 12/30/22 07:27 Sodium Chloride 0.9% 1000 Ml IV 12/30/22 08:22 999 mls/hr .Q1H1M STA Administration Discontinued Medications Generic Name Dose Route Start Last Admin Trade Name Freq PRN Reason Stop Dose Admin Sodium Chloride Confirm 12/30/22 07:24 Sodium Chloride 0.9% 1000 Ml Administered 12/30/22 07:25 Dose 1,000 mls @ ud .ROUTE .STK-MED ONE Insulin Human Lispro 10 unit 12/30/22 07:55 12/30/22 08:12 Insulin Lispro 1 Unit SQ 12/30/22 07:56 Not Given STAT ONE Insulin Human Lispro 10 unit 12/30/22 07:55 12/30/22 08:08 Insulin Lispro 1 Unit IV 12/30/22 07:56 Not Given STAT ONE Insulin Human Lispro Confirm 12/30/22 08:02 Insulin Lispro 1 Unit Administered 12/30/22 08:03 Dose 10 unit .ROUTE .STK-MED ONE Insulin Human Lispro 10 unit 12/30/22 08:10 12/30/22 08:12 Insulin Lispro 1 Unit SQ 12/30/22 08:11 10 unit STAT ONE Administration Lab/Rad Data: Laboratory Result Diagrams 12/30/22 07:33 Laboratory Results 12/30/22 12/30/22 12/30/22 Range/Units 07:33 07:33 07:33 WBC 7.7 (4.0-10.5) x10^3/uL RBC 4.33 (4.1-5.4) x10^6/uL Hgb 11.6 L (12.0-16.0) g/dL Hct 36.0 (35-47) % MCV 83.1 (78-100) fL MCH 26.8 (26-32) pg MCHC 32.2 (32-36) g/dL RDW 14.9 H (11.5-14.0) % Plt Count 216 (150-450) x10^3/uL MPV 11.3 H (7.5-11.0) fL Gran % 64.2 (36.0-66.0) % Immature Gran % (Auto) 0.3 (0.00-0.4) % Nucleat RBC Rel Count 0.0 (0.00-0.1) % Eos # (Auto) 0.14 (0-0.5) x10^3/uL Immature Gran # (Auto) 0.02 (0.00-0.03) x10^3u/L Absolute Lymphs (auto) 2.09 (1.0-4.6) x10^3/uL Absolute Monos (auto) 0.46 (0.0-1.3) x10^3/uL Absolute Nucleated RBC 0.00 (0.00-0.01) x10^3u/L Lymphocytes % 27.2 (24.0-44.0) % Monocytes % 6.0 (0.0-12.0) % Eosinophils % 1.8 (0.00-5.0) % Basophils % 0.5 (0.0-0.4) % Absolute Granulocytes 4.92 (1.4-6.9) x10^3/uL Basophils # 0.04 (0-0.4) x10^3/uL POC Glucometer (74 to 106) mg/dL Hemoglobin A1c 11.09 H (4.5-6.0) % Urine Color Yellow (Yellow) Urine Appearance Clear (Clear) Urine pH 5.5 (4.6-8.0) Ur Specific [place] 1.010 (1.005-1.030) Urine Protein Negative (Negative) Urine Glucose (UA) >=1000 A (Negative) mg/dL Urine Ketones Negative (Negative) Urine Blood Negative (Negative) Urine Nitrite Negative (Negative) Urine Bilirubin Negative (Negative) Urine Urobilinogen 0.2 (0.2) mg/dL Ur Leukocyte Esterase Trace A (Negative) U Hyaline Cast (Auto) NONE SEEN (0-2) /LPF Urine Microscopic RBC 0-2 (0-5) /HPF Urine Microscopic WBC 6-10 A (0-5) /HPF Ur Epithelial Cells None Seen (None Seen) /HPF Urine Bacteria None Seen (None Seen) /HPF Urine Culture Reflexed NO (NO) 12/30/22 Range/Units 06:37 WBC (4.0-10.5) x10^3/uL RBC (4.1-5.4) x10^6/uL Hgb (12.0-16.0) g/dL Hct (35-47) % MCV (78-100) fL MCH (26-32) pg MCHC (32-36) g/dL RDW (11.5-14.0) % Plt Count (150-450) x10^3/uL MPV (7.5-11.0) fL Gran % (36.0-66.0) % Immature Gran % (Auto) (0.00-0.4) % Nucleat RBC Rel Count (0.00-0.1) % Eos # (Auto) (0-0.5) x10^3/uL Immature Gran # (Auto) (0.00-0.03) x10^3u/L Absolute Lymphs (auto) (1.0-4.6) x10^3/uL Absolute Monos (auto) (0.0-1.3) x10^3/uL Absolute Nucleated RBC (0.00-0.01) x10^3u/L Lymphocytes % (24.0-44.0) % Monocytes % (0.0-12.0) % Eosinophils % (0.00-5.0) % Basophils % (0.0-0.4) % Absolute Granulocytes (1.4-6.9) x10^3/uL Basophils # (0-0.4) x10^3/uL POC Glucometer 324 H (74 to 106) mg/dL Hemoglobin A1c (4.5-6.0) % Urine Color (Yellow) Urine Appearance (Clear) Urine pH (4.6-8.0) Ur Specific [place] (1.005-1.030) Urine Protein (Negative) Urine Glucose (UA) (Negative) mg/dL Urine Ketones (Negative) Urine Blood (Negative) Urine Nitrite (Negative) Urine Bilirubin (Negative) Urine Urobilinogen (0.2) mg/dL Ur Leukocyte Esterase (Negative) U Hyaline Cast (Auto) (0-2) /LPF Urine Microscopic RBC (0-5) /HPF Urine Microscopic WBC (0-5) /HPF Ur Epithelial Cells (None Seen) /HPF Urine Bacteria (None Seen) /HPF Urine Culture Reflexed (NO) - Progress Progress: improved Counseled pt/family regarding: lab results, diagnosis, need for follow-up Medical Desision Making - Discussion of managment Agreed on:: Treatment plan, need for follow-up - Diagnostic Testing Diagnostic test were ordered, analyzed, and reviewed by me: Yes - Risk of complications Low Risk: Low risk of morbidity from additional dx testing or treatment The pt has a mod risk of morbidity or mortality based on: Need for prescription drug management - Departure Departure Disposition: Home Clinical Impression: Type 2 diabetes mellitus Qualifiers: Diabetes mellitus extermination inspector insulin use: without mcfp use Diabetes mellitus complication status: with hyperglycemia Qualified Code(s): E11.65 - Type 2 diabetes mellitus with hyperglycemia Condition: Stable Critical Care Time: No Referrals: SE ALVAREZ [Primary Care Provider] - Follow up with PCP 7 days Instructions: High Blood Sugar, Adult (DC), Treatment for type 2 diabetes, Type 2 Diabetes (DC), Guide to Eating When You Have Diabetes, Diabetes in Older Adults Additional Instructions: Discharge/Care Plan ANADERIC JOYNER was seen on 12/30/22 in the Emergency Room. The patient was counseled regarding Diagnosis,Lab results, Imaging studies, need for follow up and when to return to the Emergency Room. Prescriptions given: Discharge Note I have spoken with the patient and/or caregivers. I have explained the patient's condition, diagnosis and treatment plan based on the information available to me at this time. I have answered the patient's and/or caregiver's questions and addressed any concerns. The patient and/or caregivers have as good understanding of the patient's diagnosis, condition and treatment plan as can be expected at this point. The vital signs have been stable. The patient's condition is stable and appropriate for discharge from the emergency department. The patient will pursue further outpatient evaluation with the primary care physician or other designated or consulting physician as outlined in the discharge instructions. The patient and/or caregivers are agreeable to this plan of care and follow-up instructions have been explained in detail. The patient and/or caregivers have received these instruction. The patient/and or caregivers are aware that any significant change in condition or worsening of symptoms should prompt an immediate return to this or the closest emergency department or call 911. ANADERIC JOYNER was seen on 12/30/22 n the Emergency Room. At that time you were treated for an emergent condition, during your visit Laboratory, Radiology and/or other procedures may have been ordered. It is very important that you follow-up with your Primary Care Physician SE ALVAREZ within the next 24-48 hours to review your Emergency Room visit and the final results of testing that was ordered. Some test results such as Urine Cultures, Blood Cultures, and other cultures if ordered will not be finalized for 24-48 hours. If you do not have a Primary Care Provider please call the medical records department at [phone] ext [phone] to obtain a copy of your results or you may sign into our patient portal to obtain these results by visiting us @ [email or web address] and completing the following steps: 1. Click on the Patient Portal link 2. Click the Patient Self Enrollment Link to complete the enrollment form and entering your 3. Once the enrollment form is completed you will receive an email with a temporary ID and password at the email address you provided. 4. Next choose a user name and password. Your user name must be at least 4 characters long and your password must be at least 4 characters long. 5. Choose a security question from the list and provide your answer to the question. If you already have signed into the Health Portal you may access your Health Care Information 03/12 by the following steps: 1. Login to our website @ [email or web address] 2. Enter your original user name and password. FAQS The [facility] Health Portal is an online tool that contains your Lab Results, Radiology Reports, Visit History, Discharge Instructions and Health Summary Lab and Radiology Results will not be available for 72 hours on the portal. The Portal is a secure site, passwords are encryted and URLs are re-written so they cannot be copied and pasted. You and authorized family members are the only ones who can access your Portal. Also there is a timeout feature that protects your information if you leave the Portal page open. If you have technical difficulty please use the Contact Us link on the page this will allow you to submit any questions you have regarding the Portal or you may contact the Medical Record Department at [phone]. Prescriptions: Insulin Glargine [Lantus Insulin] 20 unit SQ HS 30 Days #30 unit
[2022-12-30 07:52] LABS: Appearance Clear (Clear); Bacteria None Seen /HPF (None Seen); Bilirubin Negative (Negative); Blood Negative (Negative); Epithelial Cells None Seen /HPF (None Seen); Glucose, Urine >=1000 mg/dL (Negative); Hyaline Casts NONE SEEN /LPF (0-2); Ketones Negative (Negative); Leukocyte Esterase Trace (Negative); Nitrite Negative (Negative); Ph 5.5 (4.6-8.0); Protein,Urine Dip Negative (Negative); RBC 0-2 /HPF (0-5); Urobilinogen 0.2 mg/dL (0.2)
[2022-12-30 07:53] LABS: ADD URINE CULTURE? NO (NO)
[2022-12-30] MEDS ORDERED: HUMALOG IV ONE (07:55)
[2022-12-30] MEDS ORDERED: HUMALOG SQ ONE ×2 (07:55→08:10)
[2022-12-30] MEDS ORDERED: HUMALOG ONE (08:02)
[2022-12-30 08:23] LABS: ALBUMIN 4.1 g/dL (3.5-5.0); ALKALINE PHOSPHATASE 149 U/L (38-126); BLOOD UREA NITROGEN 9 mg/dL (7-17); CHLORIDE 95 mmol/L (98-107); Carbon Dioxide 26 mmol/L (22-30); Creatinine 1 0.73 mg/dL (0.52-1.04); EST GLOMERULAR FILTRATION RATE > 60.0 ML/MIN; Glucose 339 mg/dL (74-106); Potassium 3.9 mmol/L (3.5-5.1); SGOT/AST 29 U/L (14-36); SGPT/ALT 25 U/L (0-35); SODIUM 131 mmol/L (137-145); Total Protein 7.3 g/dL (6.3-8.2)
[2022-12-30] MEDS ORDERED: Lantus Insulin SQ ONE (08:31)
[2022-12-30 10:31] VITALS: BP 164/85; PULSE 97; RESP 18; O2SAT 98
== END 2022-12-30 10:03 | disposition home or self-care (01) ==
LOC: ED 06:20
DX: E11.65 Type 2 diabetes mellitus with hyperglycemia (principal); R51.9 Headache, unspecified; R53.1 Weakness; R10.9 Unspecified abdominal pain; E78.5 Hyperlipidemia, unspecified; I10 Essential (primary) hypertension; Z79.84 Long term (current) use of oral hypoglycemic drugs; Z79.4 Long term (current) use of insulin; Z79.899 Other long term (current) drug therapy; Z75.8 Other problems related to medical facilities and other health care
CPT/HCPCS: 36000; 36415; 80053; 81001; 82947; 83036; 84443; 85025; 96360; 96372; 99284; J1817; A9270-GY